=== PATIENT | female | born 1960 | race Caucasian/White ===

== ENCOUNTER → 2016-11-13 | Outpatient (CLI) | payer BC | LOC: CT 11-10 10:30 → ECHO 11-10 11:00 → CT 11:30 | DX: R06.02 Shortness of breath (principal); I71.2 Thoracic aortic aneurysm, without rupture; Q23.1 Congenital insufficiency of aortic valve | CPT/HCPCS: ECHO; 93306 ==

== ENCOUNTER → 2016-11-16 | Outpatient (CLI) | payer BC | LOC: KOH-I 10:00 → CT 10:26 → KOH-I 15:00 | DX: I71.2 Thoracic aortic aneurysm, without rupture (principal); Q23.1 Congenital insufficiency of aortic valve | CPT/HCPCS: 71260; J7050; Q9962 ==

== ENCOUNTER → 2020-11-13 | Outpatient (CLI) | payer BC | LOC: ECHO 09:41 → CT 11:00 | DX: I71.2 Thoracic aortic aneurysm, without rupture (principal); I08.2 Rheumatic disorders of both aortic and tricuspid valves | CPT/HCPCS: ECHO; 36415; 71275; 82565; 84520; 93306; Q9967 ==